=== PATIENT | male | born 1950 | race Caucasian/White ===

== ENCOUNTER 2020-01-07 15:23 | Emergency (ER) | payer BC, OTHER ==
[~2020-01-07] VITALS: Ht 170.2 cm; Wt 71.7 kg
[~2020-01-07 15:23] MED LIST: ACET-2634; LISI40TA4
[2020-01-07 15:29] VITALS: BP_SYST 145
[2020-01-07] MEDS ORDERED: MECLIZINE HCL 25 MG TABLET (ANITVERT) PO ONE (16:00)
[2020-01-07 16:40] LABS: BASOPHILS % (AUTO) 0.1 % (0.0-2.0); EOSINOPHILS % (AUTO) 0.1 % (0.0-4.0); HEMATOCRIT 43.9 % (36-54); HEMOGLOBIN 14.8 g/dL (14.0-18.0); LYMPHOCYTES # (AUTO) 1.1 K/uL (1.0-5.5); LYMPHOCYTES % (AUTO) 19.3 % (20.5-51.5); MEAN CORPUSCULAR HEMOGLOBIN 31 pg (27-31); MEAN CORPUSCULAR HGB CONC 34 % (32-36); MEAN CORPUSCULAR VOLUME 93 fL (79.0-98.0); MONOCYTES # (AUTO) 0.4 K/uL (0.0-1.0); MONOCYTES % (AUTO) 6.4 % (1.7-9.3); NEUTROPHILS # (AUTO) 4.2 K/uL (1.8-7.7); NEUTROPHILS % (AUTO) 74.1 % (40.0-70.0); PLATELET COUNT (AUTO) 120 K/uL (130-430); RED BLOOD CELL COUNT(AUTO) 4.71 MIL/uL (4.2-6.2); RED CELL DISTRIBUTION WIDTH 14.1 % (9.0-15.0); WHITE BLOOD COUNT (AUTO) 5.6 K/uL (4.8-10.8)
[2020-01-07 16:55] LABS: CREATININE 1.06 mg/dL (0.55-1.30)
[2020-01-07 17:01] LABS: ALBUMIN 3.8 g/dL (3.4-4.8); TOTAL BILIRUBIN 0.9 mg/dL (0.0-1.0)
[2020-01-07 17:16] VITALS: BP_SYST 130
== END 2020-01-07 17:14 | disposition home or self-care (01) ==
LOC: SED 15:23
DX: H81.10 Benign paroxysmal vertigo, unspecified ear (principal); I10 Essential (primary) hypertension; Z88.1 Allergy status to other antibiotic agents
CPT/HCPCS: 36415; 70450; 80053; 82550; 84484; 85025; 93005; 99285; J8597

== ENCOUNTER 2022-01-09 17:44 | Emergency (ER) | payer BC ==
[~2022-01-09] VITALS: Ht 167.6 cm; Wt 74.8 kg
[~2022-01-09 17:44] MED LIST changes: +LISI40TA13; -LISI40TA4
[2022-01-09 18:01] VITALS: BP_SYST 143
[2022-01-09 18:40] LABS: BILIRUBIN,URINE NEGATIVE (NEGATIVE); BLOOD, URINE 1+ (NEGATIVE); CLARITY/URINE SL CLOUDY (CLEAR); COLOR,URINE YELLOW (YELLOW); GLUCOSE,URINE NEGATIVE (NEGATIVE); KETONES,URINE NEGATIVE (NEGATIVE); LEUKOCYTE ESTERASE ,URINE 3+ (NEGATIVE); NITRITE, URINE POSITIVE (NEGATIVE); PROTEIN URINE TRACE (NEGATIVE); UROBILINOGEN,URINE 0.2 (0.2-1.0)
[2022-01-09 18:45] LABS: BACTERIA,URINE MODERATE /HPF (None Seen); MUCUS,URINE None Seen /LPF (None Seen); WBC,URINE >100 /HPF (0-3)
[2022-01-09] MEDS ORDERED: cephALEXin 500 MG CAPSULE PO ONE (22:30)
[2022-01-10] MEDS ORDERED: CEPH250C PO (00:01)
[2022-01-10 00:12] VITALS: BP_SYST 132
== END 2022-01-10 00:12 | disposition home or self-care (01) ==
LOC: SED 17:44
DX: N39.0 Urinary tract infection, site not specified (principal); R30.0 Dysuria; R35.0 Frequency of micturition; R39.15 Urgency of urination; I10 Essential (primary) hypertension; Z88.1 Allergy status to other antibiotic agents; Z79.899 Other long term (current) drug therapy
CPT/HCPCS: 81000; 87086; 99283

== ENCOUNTER 2022-01-12 23:57 | Inpatient (IN) | payer BC ==
[~2022-01-12] VITALS: Ht 167.6 cm; Wt 69.9 kg
[~2022-01-12 23:57] MED LIST changes: +CEPH250C PO
[2022-01-13 00:09] VITALS: BP_SYST 131
--- NOTE | 2022-01-13 00:14 | NUR ---
PT HERE C/O ABD PAIN RADIATES TO BACK WITH MILD DYSURIA. PT STATED THAT HE WAS HERE 3 DAYS AGO AND DX WITH UTI NAD WAS SENT HOME WITH ANTIBIOTICS. PT DENIES FEVER. PMh; HTN,PROSTATE PT AAOX4, NO SOB NOTED AND NAD.
[2022-01-13 00:54] LABS: BASOPHILS % (AUTO) 0.2 % (0.0-2.0); EOSINOPHILS % (AUTO) 0.6 % (0.0-4.0); HEMATOCRIT 38.5 % (36-54); HEMOGLOBIN 13.2 g/dL (14.0-18.0); LYMPHOCYTES # (AUTO) 0.9 K/uL (1.0-5.5); LYMPHOCYTES % (AUTO) 16.1 % (20.5-51.5); MEAN CORPUSCULAR HEMOGLOBIN 31 pg (27-31); MEAN CORPUSCULAR HGB CONC 34 % (32-36); MEAN CORPUSCULAR VOLUME 90 fL (79.0-98.0); MONOCYTES # (AUTO) 0.6 K/uL (0.0-1.0); MONOCYTES % (AUTO) 9.8 % (1.7-9.3); NEUTROPHILS # (AUTO) 4.3 K/uL (1.8-7.7); NEUTROPHILS % (AUTO) 73.3 % (40.0-70.0); PLATELET COUNT (AUTO) 112 K/uL (130-430); RED BLOOD CELL COUNT(AUTO) 4.27 MIL/uL (4.2-6.2); RED CELL DISTRIBUTION WIDTH 13.9 % (9.0-15.0); WHITE BLOOD COUNT (AUTO) 5.9 K/uL (4.8-10.8)
[2022-01-13 01:08] LABS: ANION GAP 5 (5-15); CHLORIDE 101 mmol/L (98-107); CREATININE 1.26 mg/dL (0.55-1.30); GLUCOSE 112 mg/dL (70-99); UREA NITROGEN, BLOOD 12 mg/dL (8-21)
[2022-01-13 01:13] LABS: ALANINE AMINOTRANSFERASE 21 U/L (12-78); ALBUMIN 3.7 g/dL (3.4-4.8); ASPARTATE AMINOTRANSFERASE 12 U/L (10-37); TOTAL BILIRUBIN 0.9 mg/dL (0.0-1.0)
--- NOTE | 2022-01-13 02:13 | NUR ---
Placed in room 5 . Placed on monitoring and evaluation advisor, blood pressure machine and pulse oximeter. To gown for exam. Side rails up. Report given to Kenrick ORELLANA(reg).
--- NOTE | 2022-01-13 02:25 | NUR ---
ER at bedside examining patient.
[2022-01-13] MEDS ORDERED: MORPHINE 2 MG/ML INJ. SYRINGE IM ONE (02:30)
[2022-01-13] MEDS ORDERED: SULFAMETHOXAZOLE/TRIMETHOPR DS 1 TABLET PO ONE (02:30)
--- NOTE | 2022-01-13 02:30 | NUR ---
PT IS AA&OX4. AFEBRILE. NAD, C/O 9/10 R UQ ABD PAIN THAT RADIATES TO MID BACK. PER PT, HE HAS HX OF HTN & PROSTATE PROBLEM. PER PT, HE WAS TAKING ABX FOR RECURRENT UTIS. CULTURE RESULTS WERE DISCUSSED BY W/ THE PT. PT IS B & B CONTINENT, AMBULATORY W/ STEADY GAIT. SAFE & HAZARD FREE ENVIRONMENT PROVIDED. AT BEDSIDE.
[2022-01-13] MEDS ORDERED: MEROPENEM 1 GM IVPB PREMIX 50 ML IV ONE (03:00)
--- NOTE | 2022-01-13 03:00 | NUR ---
# 18 gauge angiocath placed to RFA. Use of asceptic technique. Opsite placed over site. Blood for lab drawn from site. Flushed with 10 cc of normal saline. No evidence of infiltration noted. Patient tolerated well.
[2022-01-13] MEDS ORDERED: MEROPENEM 1 GM IVPB PREMIX 50 ML IV SCH (03:15)
[2022-01-13] MEDS ORDERED: NACL 0.9% 1,000 ML IV ONE (03:15)
--- NOTE | 2022-01-13 03:15 | NUR ---
Admit bed requested Patient will be admitted to care of Dr. VU. Admitted to TELEMETRY unit. Diagnosis UTI AND PANCREATITIS Inpatient (Yes or No) Y Observation (Yes or No) N Orientation concerns or request close to nursing station (Yes or No) N Covid Status NEG On vent or bipap N Isolation requirements N Needs a sitter N From Home (Yes or if No enter name of facility) Y Requires Dialysis (Yes or No) N Med Rec Completed (Yes of No) Y
[2022-01-13] MEDS ORDERED: MEROPENEM 500 MG VIAL IV ONE (03:19)
--- NOTE | 2022-01-13 03:30 | NUR ---
Urine specimen collected and sent to lab.
[2022-01-13] MEDS ORDERED: FINA5TAB3 PO (04:58)
[2022-01-13] MEDS ORDERED: DOXA2TAB PO (04:58)
[2022-01-13 05:05] LABS: CLARITY/URINE CLOUDY (CLEAR); COLOR,URINE YELLOW (YELLOW); PH,URINE 6.5 (5.0-8.0)
[2022-01-13 05:06] LABS: BILIRUBIN,URINE NEGATIVE (NEGATIVE); BLOOD, URINE 2+ (NEGATIVE); GLUCOSE,URINE NEGATIVE (NEGATIVE); KETONES,URINE 2+ (NEGATIVE); LEUKOCYTE ESTERASE ,URINE 3+ (NEGATIVE); NITRITE, URINE POSITIVE (NEGATIVE); PROTEIN URINE 2+ (NEGATIVE); UROBILINOGEN,URINE 0.2 (0.2-1.0)
[2022-01-13 05:51] LABS: BACTERIA,URINE FEW /HPF (None Seen); WBC,URINE >100 /HPF (0-3)
--- NOTE | 2022-01-13 06:11 | NUR ---
Patient will be admitted to care of DR. VU. Admitted to TELEMETRY unit. Will go to room 118B. Belongings list completed. Complete and up to date summary report printed. SBAR report given TO REYNA AVELAR at bedside with opportunity for questions.
[2022-01-13 06:13] VITALS: BP_SYST 136
[2022-01-13] MEDS ORDERED: LISI-209 PO (06:23)
--- NOTE | 2022-01-13 06:30 | NUR ---
pt.received via [facility]-dept.pt.c/o pain.no medications ordered.dr.rizvi ibrahim.i have initiated the iv fluids administration. pt.capable to ambulate;un-assisted,reposition self.general status stable.respiratory status stable;un-labored@room air.call light/telephone w/in access of the pt.
--- NOTE | 2022-01-13 06:52 | NUR ---
CONSULTATION PAGED/CALLED Reason for Consultation: UTI Person Who was Notified: JOSE Consulting Physician: Dr. Valera cancer program consultant Focuser Specialty: ID Ordering Physician: DR. VU
--- NOTE | 2022-01-13 07:00 | NUR ---
Report received from production supervisor off shift RN for continuity of care. Patient stable.
[2022-01-13] MEDS: D5/0.45 NS 1,000 ML IV SCH ×3 (07:18→19:15)
[2022-01-13 07:22] LABS: BASOPHILS % (AUTO) 0.2 % (0.0-2.0); EOSINOPHILS % (AUTO) 0.6 % (0.0-4.0); HEMATOCRIT 35.4 % (36-54); HEMOGLOBIN 12.2 g/dL (14.0-18.0); LYMPHOCYTES % (AUTO) 22.3 % (20.5-51.5); MEAN CORPUSCULAR HEMOGLOBIN 31 pg (27-31); MEAN CORPUSCULAR HGB CONC 34 % (32-36); MEAN CORPUSCULAR VOLUME 90 fL (79.0-98.0); MONOCYTES # (AUTO) 0.6 K/uL (0.0-1.0); MONOCYTES % (AUTO) 12.4 % (1.7-9.3); NEUTROPHILS # (AUTO) 2.9 K/uL (1.8-7.7); PLATELET COUNT (AUTO) 94 K/uL (130-430); RED BLOOD CELL COUNT(AUTO) 3.93 MIL/uL (4.2-6.2); WHITE BLOOD COUNT (AUTO) 4.6 K/uL (4.8-10.8)
[2022-01-13 07:35] VITALS: BP_SYST 156
[2022-01-13 07:53] LABS: ANION GAP 5 (5-15); CALCIUM 8.4 mg/dL (8.4-11.0); CHLORIDE 104 mmol/L (98-107); CREATININE 1.15 mg/dL (0.55-1.30); GLUCOSE 107 mg/dL (70-99); UREA NITROGEN, BLOOD 12 mg/dL (8-21)
[2022-01-13] MEDS ORDERED: NALOXONE HCL 0.4 MG/ML AMP (NARCAN) IVP PRN (08:00)
--- NOTE | 2022-01-13 08:00 | NUR ---
Spoke with regarding patient having pain. New orders noted and carried out.
[2022-01-13] MEDS: MORPHINE 2 MG/ML INJ. SYRINGE IVP PRN ×3 (09:34→20:31)
[2022-01-13] MEDS: MEROPENEM 1 GM IVPB PREMIX 50 ML IV SCH ×2 (09:44→23:14)
[2022-01-13] MEDS ORDERED: FINASTERIDE 5 MG TABLET (PROSCAR) PO ONE (11:30)
[2022-01-13] MEDS ORDERED: lisinopriL 5 MG TABLET PO ONE (11:30)
[2022-01-13 12:09] LABS: NEUTROPHILS % (AUTO) 64.5 % (40.0-70.0)
[2022-01-13 12:19] VITALS: BP_SYST 127
[2022-01-13] MEDS: ONDANSETRON HCL 4 MG/2 ML VIAL IVP PRN ×2 (14:24→20:30)
[2022-01-13 16:00] VITALS: BP_SYST 124
--- NOTE | 2022-01-13 19:30 | NUR ---
Report given to carbon grinder RN for continuity of care. Patient stable condition. No distress noted.
[2022-01-13 20:00] VITALS: BP_SYST 118
[2022-01-13] MEDS ORDERED: DOXAZOSIN MESYLATE 2 MG TABLET PO SCH (21:00)
[2022-01-14] VITALS: BP_SYST 126
[2022-01-14] MEDS: MORPHINE 2 MG/ML INJ. SYRINGE IVP PRN ×4 (00:21→20:44)
[2022-01-14 00:53] VITALS: BP_SYST 126
[2022-01-14 02:02] LABS: BILIRUBIN,URINE NEGATIVE (NEGATIVE); BLOOD, URINE 1+ (NEGATIVE); COLOR,URINE YELLOW (YELLOW); GLUCOSE,URINE NEGATIVE (NEGATIVE); KETONES,URINE 1+ (NEGATIVE); LEUKOCYTE ESTERASE ,URINE 3+ (NEGATIVE); NITRITE, URINE POSITIVE (NEGATIVE); PROTEIN URINE NEGATIVE (NEGATIVE); UROBILINOGEN,URINE 0.2 (0.2-1.0)
[2022-01-14 02:12] LABS: CLARITY/URINE TURBID (CLEAR)
[2022-01-14 02:19] LABS: WBC,URINE >100 /HPF (0-3)
[2022-01-14 02:20] LABS: BACTERIA,URINE MODERATE /HPF (None Seen); MUCUS,URINE None Seen /LPF (None Seen)
[2022-01-14] MEDS: D5/0.45 NS 1,000 ML IV SCH ×3 (04:28→20:46)
[2022-01-14] MEDS: MEROPENEM 1 GM IVPB PREMIX 50 ML IV SCH ×3 (06:32→22:00)
[2022-01-14 06:54] LABS: BASOPHILS % (AUTO) 0.2 % (0.0-2.0); HEMATOCRIT 32.7 % (36-54); HEMOGLOBIN 11.4 g/dL (14.0-18.0); LYMPHOCYTES # (AUTO) 0.9 K/uL (1.0-5.5); LYMPHOCYTES % (AUTO) 18.5 % (20.5-51.5); MEAN CORPUSCULAR HEMOGLOBIN 31 pg (27-31); MEAN CORPUSCULAR HGB CONC 35 % (32-36); MEAN CORPUSCULAR VOLUME 90 fL (79.0-98.0); MONOCYTES # (AUTO) 0.6 K/uL (0.0-1.0); MONOCYTES % (AUTO) 12.3 % (1.7-9.3); NEUTROPHILS # (AUTO) 3.4 K/uL (1.8-7.7); PLATELET COUNT (AUTO) 105 K/uL (130-430); RED BLOOD CELL COUNT(AUTO) 3.65 MIL/uL (4.2-6.2); RED CELL DISTRIBUTION WIDTH 13.7 % (9.0-15.0)
[2022-01-14 06:57] LABS: ALANINE AMINOTRANSFERASE 17 U/L (12-78); ALBUMIN 2.8 g/dL (3.4-4.8); ANION GAP 4 (5-15); ASPARTATE AMINOTRANSFERASE 8 U/L (10-37); CALCIUM 8.2 mg/dL (8.4-11.0); CHLORIDE 104 mmol/L (98-107); CREATININE 1.17 mg/dL (0.55-1.30); GLUCOSE 129 mg/dL (70-99); LIPASE 1005 U/L (73-393); PHOSPHORUS 2.9 mg/dL (2.7-4.5); TOTAL BILIRUBIN 0.7 mg/dL (0.0-1.0); UREA NITROGEN, BLOOD 7 mg/dL (8-21)
--- NOTE | 2022-01-14 07:04 | NUR ---
pt has been complaining about pain through out my shift. Pt is getting his Meds and tolerated well.
--- NOTE | 2022-01-14 08:00 | NUR ---
Mr Maurice has been assessed as indicated. He has been successful with pain control with IV morphine. He has had no c/o nausea. He does ambulate with no assistance to the restroom. He uses the urinal for volume measurement. He wishes he could eat but has no other s/s of distress or discomfort.
[2022-01-14] MEDS ORDERED: lisinopriL 5 MG TABLET PO SCH (09:00)
[2022-01-14] MEDS ORDERED: FINASTERIDE 5 MG TABLET (PROSCAR) PO SCH (09:00)
[2022-01-14 12:00] VITALS: BP_SYST 116
--- NOTE | 2022-01-14 15:00 | NUR ---
Miss Maurice is at the bedside. She expresses a desire to speak with physician. Mr Maurice is given another dose of IV morphine.
[2022-01-14 16:00] VITALS: BP_SYST 125
--- NOTE | 2022-01-14 16:45 | NUR ---
continuation of care report was endorsed by nurse aida. patient is awake and alert no complaints at this time. call light is with him educated to use for assistance.
--- NOTE | 2022-01-14 18:53 | NUR ---
rn closing note patient is awake and alert no signs of any distress laying in bed. patient educated operational communication chief light for assistance. call light is with him. patient has no complaints at this time.
[2022-01-14 20:00] VITALS: BP_SYST 146
[2022-01-14] MEDS: ONDANSETRON HCL 4 MG/2 ML VIAL IVP PRN (20:45)
[2022-01-15] MEDS: MORPHINE 2 MG/ML INJ. SYRINGE IVP PRN ×5 (01:10→20:36)
[2022-01-15] MEDS: D5/0.45 NS 1,000 ML IV SCH ×3 (03:15→20:37)
[2022-01-15] MEDS: MEROPENEM 1 GM IVPB PREMIX 50 ML IV SCH ×3 (05:38→20:43)
[2022-01-15 10:38] LABS: BASOPHILS % (AUTO) 0.3 % (0.0-2.0); EOSINOPHILS # (AUTO) 0.1 K/uL (0.0-0.4); EOSINOPHILS % (AUTO) 2.1 % (0.0-4.0); HEMOGLOBIN 11.5 g/dL (14.0-18.0); LYMPHOCYTES # (AUTO) 0.8 K/uL (1.0-5.5); LYMPHOCYTES % (AUTO) 18.2 % (20.5-51.5); MEAN CORPUSCULAR HEMOGLOBIN 31 pg (27-31); MEAN CORPUSCULAR HGB CONC 35 % (32-36); MEAN CORPUSCULAR VOLUME 89 fL (79.0-98.0); MONOCYTES # (AUTO) 0.6 K/uL (0.0-1.0); MONOCYTES % (AUTO) 12.7 % (1.7-9.3); NEUTROPHILS # (AUTO) 3.1 K/uL (1.8-7.7); NEUTROPHILS % (AUTO) 66.7 % (40.0-70.0); PLATELET COUNT (AUTO) 102 K/uL (130-430); RED BLOOD CELL COUNT(AUTO) 3.71 MIL/uL (4.2-6.2); RED CELL DISTRIBUTION WIDTH 13.5 % (9.0-15.0); WHITE BLOOD COUNT (AUTO) 4.7 K/uL (4.8-10.8)
[2022-01-15 10:50] LABS: ALANINE AMINOTRANSFERASE 16 U/L (12-78); ALBUMIN 2.8 g/dL (3.4-4.8); ANION GAP 4 (5-15); ASPARTATE AMINOTRANSFERASE 9 U/L (10-37); CALCIUM 8.4 mg/dL (8.4-11.0); CHLORIDE 103 mmol/L (98-107); CREATININE 1.11 mg/dL (0.55-1.30); GLUCOSE 124 mg/dL (70-99); LIPASE 478 U/L (73-393); TOTAL BILIRUBIN 0.7 mg/dL (0.0-1.0); UREA NITROGEN, BLOOD 7 mg/dL (8-21)
[2022-01-15 14:10] VITALS: BP_SYST 139
[2022-01-15 17:58] VITALS: BP_SYST 142
[2022-01-16] VITALS: BP_SYST 146
[2022-01-16] MEDS: MORPHINE 2 MG/ML INJ. SYRINGE IVP PRN ×6 (01:10→21:49)
[2022-01-16] MEDS: D5/0.45 NS 1,000 ML IV SCH ×3 (04:07→21:49)
[2022-01-16] MEDS: MEROPENEM 1 GM IVPB PREMIX 50 ML IV SCH ×3 (05:22→21:48)
--- NOTE | 2022-01-16 05:27 | NUR ---
CONSULTATION PAGED/CALLED Reason for Consultation: PANCREATITIS Person Who was NotifiEd:JOSE Consulting Physician:OZZY Spring Bender Specialty: Ordering Physician: ANA LILIA
[2022-01-16 07:35] LABS: BASOPHILS % (AUTO) 0.1 % (0.0-2.0); EOSINOPHILS # (AUTO) 0.1 K/uL (0.0-0.4); HEMATOCRIT 32.9 % (36-54); HEMOGLOBIN 11.6 g/dL (14.0-18.0); LYMPHOCYTES # (AUTO) 0.9 K/uL (1.0-5.5); LYMPHOCYTES % (AUTO) 18.7 % (20.5-51.5); MEAN CORPUSCULAR HEMOGLOBIN 31 pg (27-31); MEAN CORPUSCULAR HGB CONC 35 % (32-36); MEAN CORPUSCULAR VOLUME 88 fL (79.0-98.0); MONOCYTES # (AUTO) 0.6 K/uL (0.0-1.0); NEUTROPHILS % (AUTO) 65.2 % (40.0-70.0); PLATELET COUNT (AUTO) 119 K/uL (130-430); RED BLOOD CELL COUNT(AUTO) 3.73 MIL/uL (4.2-6.2); RED CELL DISTRIBUTION WIDTH 13.7 % (9.0-15.0); WHITE BLOOD COUNT (AUTO) 4.6 K/uL (4.8-10.8)
[2022-01-16 07:59] VITALS: BP_SYST 134
[2022-01-16 08:35] LABS: ALANINE AMINOTRANSFERASE 16 U/L (12-78); ALBUMIN 2.7 g/dL (3.4-4.8); ANION GAP 6 (5-15); ASPARTATE AMINOTRANSFERASE 9 U/L (10-37); CALCIUM 8.1 mg/dL (8.4-11.0); CHLORIDE 104 mmol/L (98-107); CREATININE 0.95 mg/dL (0.55-1.30); GLUCOSE 124 mg/dL (70-99); LIPASE 341 U/L (73-393); TOTAL BILIRUBIN 0.8 mg/dL (0.0-1.0); UREA NITROGEN, BLOOD 7 mg/dL (8-21)
[2022-01-16] MEDS ORDERED: TAMSULOSIN HCL 0.4 MG CAP PO SCH (09:00)
[2022-01-16] MEDS: ONDANSETRON HCL 4 MG/2 ML VIAL IVP PRN ×2 (09:06→18:04)
[2022-01-16] MEDS ORDERED: lisinopriL 5 MG TABLET PO ONE (09:30)
[2022-01-16] MEDS ORDERED: FINASTERIDE 5 MG TABLET (PROSCAR) PO ONE (09:30)
--- NOTE | 2022-01-16 09:40 | NUR ---
Dr. Buck talked to patient at bedside regarding tamsulosin and proscar. New orders noted and carried out.
[2022-01-16 11:20] VITALS: BP_SYST 142
[2022-01-16 15:45] VITALS: BP_SYST 125
[2022-01-16 20:00] VITALS: BP_SYST 127
[2022-01-16] MEDS: DOXAZOSIN MESYLATE 2 MG TABLET PO SCH (21:42)
--- NOTE | 2022-01-17 | NUR ---
Per report pt has been assigned to no PRINTER APPRENTICE.
[2022-01-17] MEDS: MORPHINE 2 MG/ML INJ. SYRINGE IVP PRN ×3 (02:11→22:27)
[2022-01-17] MEDS: MEROPENEM 1 GM IVPB PREMIX 50 ML IV SCH ×3 (05:06→20:31)
[2022-01-17] MEDS: D5/0.45 NS 1,000 ML IV SCH ×2 (05:07→14:00)
--- NOTE | 2022-01-17 07:00 | NUR ---
Report received from shift supervisor rn RN for continuity of care. Patient stable.
[2022-01-17 07:29] VITALS: BP_SYST 129
[2022-01-17 07:44] LABS: ANION GAP 6 (5-15); CALCIUM 8.1 mg/dL (8.4-11.0); CHLORIDE 104 mmol/L (98-107); CREATININE 1.02 mg/dL (0.55-1.30); GLUCOSE 106 mg/dL (70-99); TRIGLYCERIDES 119 mg/dL (30-150); UREA NITROGEN, BLOOD 7 mg/dL (8-21)
[2022-01-17 07:46] LABS: BASOPHILS % (AUTO) 0.2 % (0.0-2.0); EOSINOPHILS # (AUTO) 0.1 K/uL (0.0-0.4); EOSINOPHILS % (AUTO) 2.9 % (0.0-4.0); HEMATOCRIT 31.4 % (36-54); HEMOGLOBIN 11.1 g/dL (14.0-18.0); LYMPHOCYTES # (AUTO) 0.9 K/uL (1.0-5.5); LYMPHOCYTES % (AUTO) 23.2 % (20.5-51.5); MEAN CORPUSCULAR HEMOGLOBIN 31 pg (27-31); MEAN CORPUSCULAR HGB CONC 35 % (32-36); MEAN CORPUSCULAR VOLUME 88 fL (79.0-98.0); MONOCYTES # (AUTO) 0.5 K/uL (0.0-1.0); MONOCYTES % (AUTO) 12.1 % (1.7-9.3); NEUTROPHILS # (AUTO) 2.5 K/uL (1.8-7.7); NEUTROPHILS % (AUTO) 61.6 % (40.0-70.0); PLATELET COUNT (AUTO) 127 K/uL (130-430); RED BLOOD CELL COUNT(AUTO) 3.56 MIL/uL (4.2-6.2); RED CELL DISTRIBUTION WIDTH 13.3 % (9.0-15.0); WHITE BLOOD COUNT (AUTO) 4.1 K/uL (4.8-10.8)
[2022-01-17] MEDS: FINASTERIDE 5 MG TABLET (PROSCAR) PO SCH (08:34)
[2022-01-17] MEDS: lisinopriL 5 MG TABLET PO SCH (08:35)
[2022-01-17 12:00] VITALS: BP_SYST 132
[2022-01-17 16:00] VITALS: BP_SYST 128
--- NOTE | 2022-01-17 19:34 | NUR ---
Report given to photoengraving sketch maker RN for continuity of care. Patient stable condition.
[2022-01-17 20:00] VITALS: BP_SYST 139
[2022-01-17] MEDS: DOXAZOSIN MESYLATE 2 MG TABLET PO SCH (20:31)
[2022-01-18] MEDS: D5/0.45 NS 1,000 ML IV SCH ×2 (05:10→14:08)
[2022-01-18] MEDS: MEROPENEM 1 GM IVPB PREMIX 50 ML IV SCH ×2 (05:11→14:00)
[2022-01-18] MEDS: MORPHINE 2 MG/ML INJ. SYRINGE IVP PRN ×3 (06:11→20:05)
[2022-01-18 07:43] VITALS: BP_SYST 124
--- NOTE | 2022-01-18 07:51 | NUR ---
Report received from chair caner RN for continuity of care. Patient in stable condition.
[2022-01-18] MEDS: FINASTERIDE 5 MG TABLET (PROSCAR) PO SCH (09:22)
[2022-01-18] MEDS: lisinopriL 5 MG TABLET PO SCH (09:23)
[2022-01-18 12:00] VITALS: BP_SYST 132
--- NOTE | 2022-01-18 12:42 | NUR ---
Spoke with Dr. Pichardo and he spoke with Dr. Theo HUDSON regarding patient urine culture and antibiotics. New orders noted and carried out.
[2022-01-18 16:00] VITALS: BP_SYST 124
[2022-01-18] MEDS ORDERED: ERTA1VIA IJ (18:34)
[2022-01-18 18:40] VITALS: BP_SYST 136
--- NOTE | 2022-01-18 18:43 | NUR ---
Spoke with Chris PICC RN. Midline to be placed 2-3 hours. Notified picc line nurse that patient to be discharged tonight.
[2022-01-18] MEDS: ERTAPENEM SODIUM 1 GM in NS 50 ML IV SCH (18:58)
--- NOTE | 2022-01-18 18:59 | NUR ---
Patient saying, "Dr. Pichardo promised me morphine liquid when going home, but I called pharmacy and they said it was not there." Paging Dr. Pichardo to discuss the situation.
--- NOTE | 2022-01-18 19:07 | NUR ---
Spoke with Dr. Pichardo regarding patient's morphine liquid. ok to hold discharge for tonight. Updated Dr. Pichardo on midline placement for tonight. Patient made aware.
--- NOTE | 2022-01-18 19:30 | NUR ---
Opening note Pt is awake lying in bed, a/o x4. Breathing even and unlabored on RA. No s/s of respiratory distress. IV site intact and patent with fluids running at ordered rate. Waiting for midline placement. Pt aware of discharge tomorrow. Fall and safety precautions in place with bed in lowest position and call light within reach
[2022-01-18 20:00] VITALS: BP_SYST 124
[2022-01-18] MEDS: DOXAZOSIN MESYLATE 2 MG TABLET PO SCH (20:01)
--- NOTE | 2022-01-18 20:06 | NUR ---
Report given to shift supervisor rn RN for continuity of care. Patient stable. Aware of discharge tomorrow. Hold discharge for today.
--- NOTE | 2022-01-18 20:08 | NUR ---
HERNANDO Beavers made aware that discharge held for patient.
--- NOTE | 2022-01-18 22:00 | NUR ---
Midline placement Pt now has ANAIS midline in place. Intact and patent. Connected to fluids Addendum: 01/19/22 at 0528 by Nuris Do RN midline is in LIZZ, not ANAIS
[2022-01-19] VITALS: BP_SYST 125
--- NOTE | 2022-01-19 00:15 | NUR ---
Rounds Pt is resting in bed, eyes closed. Breathing even and unlabored. Fall and safety checks in place
[2022-01-19] MEDS: D5/0.45 NS 1,000 ML IV SCH ×2 (02:12→10:17)
[2022-01-19] MEDS: MORPHINE 2 MG/ML INJ. SYRINGE IVP PRN ×2 (03:10→16:38)
--- NOTE | 2022-01-19 06:44 | NUR ---
Closing note Pt awake resting in bed. No s/s of respiratory distress. Breathing even and unlabored on RA. LIZZ midline intact and patent with fluids running at ordered rate. Does not complain of pain at this time. All needs met throughout shift. Fall and safety precautions in place with bed in lowest position and call light within reach
--- NOTE | 2022-01-19 07:15 | NUR ---
OPENING NOTE PT IN BED, RESTING WITH REGULAR AND NON-LABORED BREATHING. MIDLINE LIZZ REMAIN INTACT AND PATENT. IV RUNNING ORDERED. DENIES ANY PAIN OR DISCOMFORT. BED IS LOCKED AND AT LOW POSITION. ENCOURAGED TO USE CALL LIGHT FOR ASSISTANCE. SAFETY PRECAUTION IN PLACED. WILL CONTINUE TO MONITOR
[2022-01-19 08:00] VITALS: BP_SYST 146
[2022-01-19] MEDS: FINASTERIDE 5 MG TABLET (PROSCAR) PO SCH (08:28)
[2022-01-19] MEDS: lisinopriL 5 MG TABLET PO SCH (08:28)
--- NOTE | 2022-01-19 11:00 | NUR ---
OKAY TO GIVE EARLY ATB OKAY TO GIVE INVANZ IV ATB AROUND [address] VU SO THAT PT CAN BE DISCHARGED.
[2022-01-19 12:00] VITALS: BP_SYST 134
[2022-01-19] MEDS ORDERED: MORP10SO PO (12:09)
--- NOTE | 2022-01-19 14:30 | NUR ---
[facility] TALKED TO NAZ NURSE [phone] REGARDING HOME HEALTH SERVICE. NAZ NURSE REQUESTED TO TALK TO CAREER PLACEMENT SERVICES COUNSELOR. CONTACTED [facility] , TOLD THAT HOME HEALTH WAS SET UP.
[2022-01-19 14:35] VITALS: BP_SYST 134
[2022-01-19] MEDS: ERTAPENEM SODIUM 1 GM in NS 50 ML IV SCH (15:15)
--- NOTE | 2022-01-19 16:00 | NUR ---
WAS TOLD THAT PHARMACY WHERE SHE'S SUPPOSED TO SENIOR SALES ASSISTANT MORPHINE, DOES NOT CARRY MORPHINE LIQUID. WAS CALLING DIFFERENT PHARMACY AND CONTACTED DR. VU ABOUT IT
--- NOTE | 2022-01-19 17:00 | NUR ---
FOUND THE PHARMACY THAT CARRIES MORPHINE LIQUID.
--- NOTE | 2022-01-19 17:30 | NUR ---
D/C Patient Patient given medication reconciliation form and D/C instructions. Exit Care provided. Patient verbalized understanding. MD discussed with patient the results and treatment provided. Escorted patient via wheelchair for discharge to home. Patient in stable condition, ID band removed. Midline to Left upper arm remain intact and dressing applied for iv antibiotic use at home. Rx of Morphin 10mg/5ml liquid 10mg prn given. Patient educated on pain management. All belongings sent with patient.
--- NOTE | 2022-01-20 10:05 | NUR ---
Dispo code 01
== END 2022-01-19 17:33 | disposition home health service (06) | DRG 439 ==
LOC: SED 23:57 → STU 01-13 03:11 → SMU 01-14 11:28
PROVIDERS: ADMIT Internal Medicine; ATTEND Internal Medicine
PROC: 05HY33Z Insertion of Infusion Device into Upper Vein, Percutaneous Approach (ICD-10-PCS; principal; 2022-01-19)
DX: K85.90 Acute pancreatitis without necrosis or infection, unspecified (principal); D61.818 Other pancytopenia; N30.90 Cystitis, unspecified without hematuria; N40.0 Benign prostatic hyperplasia without lower urinary tract symptoms; D69.6 Thrombocytopenia, unspecified; I10 Essential (primary) hypertension; Z20.822 Contact with and (suspected) exposure to COVID-19; F10.10 Alcohol abuse, uncomplicated; Y90.9 Presence of alcohol in blood, level not specified; Z87.891 Personal history of nicotine dependence; Z87.440 Personal history of urinary (tract) infections; Z88.1 Allergy status to other antibiotic agents; Z88.8 Allergy status to other drugs, medicaments and biological substances; Z79.899 Other long term (current) drug therapy
CPT/HCPCS: 36415; 76376; 76705; 80048; 80053; 81000; 82787; 83605; 83690; 83735; 84100; 84478; 85025; 87040; 87086; 93005; 96365; 96372; 99285; C1751; G0378; J1335; J2185; J2270; J2405; J7120